=== PATIENT | female | born 1995 | race Caucasian/White ===

== ENCOUNTER 2018-03-01 20:25 | Emergency (ER) | payer BC ==
[2018-03-01] MEDS ORDERED: Sodium Chloride 0.9% 1,000 ML IV ONE ×2 (20:47→21:58)
[2018-03-01] MEDS ORDERED: Acetaminophen 325 MG Tab PO ONE (20:47)
--- NOTE | 2018-03-01 21:10 | EDM.PDOC ---
<Yas Alejandro - Last Filed: 03/01/18 20:55> ED HPI GENERAL MEDICAL PROBLEM - General Stated Complaint: LUNGS HURTING Time Seen by Provider: 03/01/18 21:00 Source of Information: Reports: Patient History Limitations: Reports: No Limitations - History of Present Illness INITIAL COMMENTS - FREE TEXT/NARRATIVE: Patient comes in to the emergency department with complaint generalized fatigue , cough, and chills for 7 days. [place] has been around 3 other individuals who have tested positive for strep throat. She states that she has been extremely tired and fatigued and has stayed in bed most of the week. He has not taken her temperature but has felt warm. Has a decrease appetite throughout the entire which is [place] 6 pounds. She denies having any nausea or vomiting does not take. She does complain of a cough that has progressed throughout the week "it hurts when he has a cough". Denies any foreign travel or recent antibiotic use. Onset: Gradual Improves with: Reports: None Worsens with: Reports: None Associated Symptoms: Reports: Cough, Fever/Chills, Malaise. Denies: Nausea/ Vomiting, Shortness of Breath, Syncope, Weakness - Related Data Allergies Allergy/AdvReac Type Severity Reaction Status Date / Time No Known Allergies Allergy Verified 03/02/18 01:22 Home Meds: Home Meds . [No Known Home Meds] 03/01/18 [History] ED ROS GENERAL - Review of Systems Review Of Systems: See Below Constitutional: Reports: Fever, Chills, Malaise, Weakness, Fatigue, Decreased Appetite HEENT: Reports: No Symptoms Respiratory: Reports: No Symptoms Cardiovascular: Reports: No Symptoms Endocrine: Reports: Fatigue GI/Abdominal: Reports: Decreased Appetite. Denies: Constipation, Diarrhea, Distension, Flatus, Nausea, Vomiting : Reports: No Symptoms Musculoskeletal: Reports: Other (generalized body ache) Skin: Reports: No Symptoms Neurological: Reports: No Symptoms Psychiatric: Reports: No Symptoms Hematologic/Lymphatic: Reports: No Symptoms Immunologic: Reports: No Symptoms ED EXAM, GENERAL - Physical Exam Exam: See Below Exam Limited By: No Limitations General Appearance: Alert, WD/WN, No Apparent Distress Ears: Normal External Exam, Normal Canal, Hearing Grossly Normal, Normal TMs Ear Exam: Bilateral Ear: Auricle Normal, Canal Normal, TM normal Throat/Mouth: Normal Inspection Head: Atraumatic, Normocephalic Neck: Normal Inspection, Supple, Non-Tender, Full Range of Motion Respiratory/Chest: No Respiratory Distress, Lungs Clear, Normal Breath Sounds, No Accessory Muscle Use, Chest Non-Tender Cardiovascular: Normal Peripheral Pulses, Regular Rate, Rhythm, No Edema GI/Abdominal: Normal Bowel Sounds, Soft, Non-Tender, No Distention Back Exam: Normal Inspection, Full Range of Motion Extremities: Normal Inspection, Normal Range of Motion, Non-Tender, Normal Capillary Refill Neurological: Alert, Oriented, Normal Gait Psychiatric: Normal Affect, Normal Mood Skin Exam: Warm, No Rash Lymphatic: No Adenopathy Course - Vital Signs Last Recorded V/S: Last Vital Signs Temp 37.7 C 03/01/18 22:20 Pulse 102 H 03/01/18 22:20 Resp 18 03/01/18 22:20 BP 126/81 03/01/18 22:20 Pulse Ox 95 03/01/18 22:20 - Orders/Labs/Meds Labs: Laboratory Tests 03/01/18 03/01/18 03/01/18 Range/Units 21:00 21:00 21:00 WBC 9.5 (4.0-10.0) x10^3/uL RBC 4.55 (4.00-5.50) x10^6/uL Hgb 13.6 (12.0-16.0) g/dL Hct 39.8 (33.0-47.0) % MCV 87.5 (78.0-93.0) fL MCH 29.9 (26.0-32.0) pg MCHC 34.2 (32.0-36.0) g/dL RDW Coeff of [place] 13.4 (10.0-15.0) % Plt Count 274 (130-400) x10^3/uL Neut % (Auto) 75.7 (50.0-80.0) % Lymph % (Auto) 10.7 L (25.0-50.0) % [place] % (Auto) 13.4 H (2.0-11.0) % Eos % (Auto) 0.1 (0.0-4.0) % Baso % (Auto) 0.1 L (0.2-1.2) % Sodium 131 L (136-145) mmol/L Potassium 3.1 L (3.5-5.1) mmol/L Chloride 100 (98-107) mmol/L Carbon Dioxide 24 (21-32) mmol/L Anion Gap 10.1 (10-20) mmol/L BUN 9 (7-18) mg/dL Creatinine 0.8 (0.55-1.02) mg/dL Est Cr Clr Drug Dosing 112.21 mL/min Estimated GFR (MDRD) > 60 Glucose 104 (74-106) mg/dL Lactic Acid 0.7 (0.4-2.0) mmol/L Calcium 9.0 (8.5-10.1) mg/dL Corrected Calcium 9.48 (8.5-10.1) mg/dL Magnesium (1.8-2.4) mg/dL Total Bilirubin 0.3 (0.2-1.0) mg/dL AST 19 (15-37) U/L ALT 23 (14-59) U/L Alkaline Phosphatase 52 (46-116) U/L Total Protein 7.7 (6.4-8.2) g/dL Albumin 3.4 (3.4-5.0) g/dL Globulin 4.3 Albumin/Globulin Ratio 0.79 Monoscreen (NEGATIVE) 03/01/18 Range/Units 21:00 WBC (4.0-10.0) x10^3/uL RBC (4.00-5.50) x10^6/uL Hgb (12.0-16.0) g/dL Hct (33.0-47.0) % MCV (78.0-93.0) fL MCH (26.0-32.0) pg MCHC (32.0-36.0) g/dL RDW Coeff of [place] (10.0-15.0) % Plt Count (130-400) x10^3/uL Neut % (Auto) (50.0-80.0) % Lymph % (Auto) (25.0-50.0) % [place] % (Auto) (2.0-11.0) % Eos % (Auto) (0.0-4.0) % Baso % (Auto) (0.2-1.2) % Sodium (136-145) mmol/L Potassium (3.5-5.1) mmol/L Chloride (98-107) mmol/L Carbon Dioxide (21-32) mmol/L Anion Gap (10-20) mmol/L BUN (7-18) mg/dL Creatinine (0.55-1.02) mg/dL Est Cr Clr Drug Dosing mL/min Estimated GFR (MDRD) Glucose (74-106) mg/dL Lactic Acid (0.4-2.0) mmol/L Calcium (8.5-10.1) mg/dL Corrected Calcium (8.5-10.1) mg/dL Magnesium 1.8 (1.8-2.4) mg/dL Total Bilirubin (0.2-1.0) mg/dL AST (15-37) U/L ALT (14-59) U/L Alkaline Phosphatase (46-116) U/L Total Protein (6.4-8.2) g/dL Albumin (3.4-5.0) g/dL Globulin Albumin/Globulin Ratio Monoscreen Negative (NEGATIVE) Meds: Medications Discontinued Medications Generic Name Dose Route Start Last Admin Trade Name Mildred PRN Reason Stop Dose Admin Acetaminophen 650 mg 03/01/18 20:47 03/01/18 21:05 Tylenol PO 03/01/18 20:48 650 mg NOW ONE Administration Azithromycin 500 mg 03/01/18 22:03 03/01/18 22:15 Zithromax PO 03/01/18 22:04 500 mg ONETIME ONE Administration Azithromycin 1 packet 03/01/18 22:30 03/01/18 23:06 Take Home: Azithromycin 250 Mg, 2 Tab Pack PO 03/01/18 22:31 1 packet ONETIME ONE Administration Ceftriaxone Sodium 1 gm 03/01/18 21:11 03/01/18 22:06 Rocephin IVPUSH 03/01/18 21:12 1 gm ONETIME ONE Administration Sodium Chloride 1,000 mls @ 1,000 mls/hr 03/01/18 20:47 03/01/18 21:08 Normal Saline IV 03/01/18 21:46 1,000 mls/hr ONETIME ONE Administration Sodium Chloride 1,000 mls @ 999 mls/hr 03/01/18 21:58 03/01/18 23:03 Normal Saline IV 03/01/18 22:58 999 mls/hr ONETIME ONE Administration Potassium Chloride 60 meq 03/01/18 21:58 03/01/18 22:04 Klor-Con M20 PO 03/01/18 21:59 60 meq ONETIME ONE Administration Departure - Departure Disposition: Home, Self-Care 01 Clinical Impression: CAP (community acquired pneumonia) Qualifiers: Laterality: right Lung location: middle lobe of lung Qualified Code(s): J18.1 - Lobar pneumonia, unspecified organism - Discharge Information Instructions: Community-Acquired Pneumonia, Adult, [id number] Referrals: PCP,Not In Area [Primary Care Provider] - Forms: ED Department Discharge Additional Instructions: Stay well hydrated with water or an electrolyte replacement drink like powerade or gatorade. You have a right middle lobe pneumonia. Please take the azithromycin until finished unless you have an allergic reaction such as difficulty breathing, hives, or rashes. Schedule a follow up appointment in 5-7 days to be sure the pneumonia has resolved. Please come in with any further problems or worsening of your symptoms. Call with any additional questions or concerns. <Kody Laws - Last Filed: 03/02/18 23:42> ED EXAM, GENERAL - Physical Exam Free Text/Narrative:: I did an additional exam and agree with previous provider's findings. Course - Radiology Interpretation Free Text/Narrative:: Chest x-ray does show a probable RML pneumonia. Has received 1 gm rocephin. Will discharge on oral antibiotics. Departure - Departure Time of Disposition: 23:40 Condition: Good - Discharge Information *PRESCRIPTION DRUG MONITORING PROGRAM REVIEWED*: Not Applicable *COPY OF PRESCRIPTION DRUG MONITORING REPORT IN PATIENT JENNIFER: Not Applicable - Problem List & Annotations (1) CAP (community acquired pneumonia) SNOMED Code(s): 258660707 Code(s): J18.9 - PNEUMONIA, UNSPECIFIED ORGANISM Status: Acute Priority: Medium Qualifiers: Laterality: right Lung location: middle lobe of lung Qualified Code(s): J18.1 - Lobar pneumonia, unspecified organism - Problem List Review Problem List Initiated/Reviewed/Updated: Yes - Assessment/Plan Assessment:: right middle lobe pneumonia hypokalemia Plan: Stay well hydrated with water or an electrolyte replacement drink like powerade or gatorade. You have a right middle lobe pneumonia. Please take the azithromycin until finished unless you have an allergic reaction such as difficulty breathing, hives, or rashes. Schedule a follow up appointment in 5-7 days to be sure the pneumonia has resolved. Please come in with any further problems or worsening of your symptoms. Call with any additional questions or concerns.
[2018-03-01] MEDS ORDERED: cefTRIAXone 1 GM Vial IVPUSH ONE (21:11)
[2018-03-01 21:26] LABS: CHLORIDE,CL 100 mmol/L (98-107); SODIUM,NA 131 mmol/L (136-145)
[2018-03-01 21:27] LABS: ANION GAP 10.1 mmol/L (10-20)
[2018-03-01] MEDS ORDERED: Potassium Chloride 20 MEQ Tab.ER PO ONE (21:58)
[2018-03-01] MEDS ORDERED: Azithromycin 250 MG Tab PO ONE (22:03)
[2018-03-01] MEDS ORDERED: Take Home: Azithromycin 250 MG, 2 Tab Pack PO ONE (22:30)
== END 2018-03-01 23:40 | disposition home or self-care (01) ==
LOC: VM.ED 20:25
DX: J18.9 Pneumonia, unspecified organism (principal); E87.6 Hypokalemia
CPT/HCPCS: 36415; 71046; 80053; 83605; 83735; 85025; 86308; 87040; 87081; 87804; 87880; 96365; 96366; 96375; 99284; A9270; J0696; J7030